=== PATIENT | male | born 2000 | race Caucasian/White ===

== ENCOUNTER 2021-05-19 12:47 | Emergency (ER) | payer OTHER ==
[2021-05-19 12:58] VITALS: BP 134/70; PULSE 80; TEMP 98; BMI 25.7
[2021-05-19] MEDS ORDERED: IBUPROFEN 400 MG TABLET (FP) PO ONE ×2 (13:22→13:24)
== END 2021-05-19 14:04 | disposition home or self-care (01) ==
LOC: JERFT 12:47
DX: S83.91XA Sprain of unspecified site of right knee, initial encounter (principal); X50.3XXA Overexertion from repetitive movements, initial encounter; Y93.67 Activity, basketball
CPT/HCPCS: 73560-TC-RT-FY; 99283-25